=== PATIENT | female | born 1980 | race Caucasian/White ===

== ENCOUNTER 2025-04-20 11:38 | Day surgery (SDC) | payer OTHER, SELFPAY ==
[2025-04-13 14:59] VITALS: BMI 34.4
--- NOTE | 2025-04-20 07:09 | PM.HP.IH.1 ---
History of Present Illness History of Present Illness Date Patient Seen: 04/20/25 Chief complaint: Colonoscopy w/band ligation Narrative: Patient presents for colonoscopy today, possible band ligation hemorrhoids. PFSH Social History Smoking Status: Never smoker Meds Home Medications and Allergies Home Medications ?Medication ?Instructions ?Recorded ?Confirmed ?Type sodium,potassium,mag sulfates 17.5 See Rx Instructions PO .COMPLEX 03/19/25 Rx gram-3.13 gram-1.6 gram oral soln #354 mL (Suprep Bowel Prep Kit) Allergies Allergy/AdvReac Type Severity Reaction Status Date / Time No Known Drug Allergies Allergy Unverified 03/15/25 09:01 Exam Narrative Exam Narrative: Const General: healthy appearing, comfortable and no acute distress Orientation: alert and oriented x3 HENMT Ears: hearing grossly normal bilaterally Eyes Visual Kenny: normal visual kenny by confrontation Conjunctivae: conjunctivae normal Sclera: sclerae normal EOM: EOM intact bilaterally Resp Effort & Inspection: normal respiratory effort and able to speak in complete sentences Cardio Rate: regular rate GI Palpation: soft (NT) Extrem General: no pedal edema and no calf tenderness Assessment & Plan Assessment and plan (1) Rectal bleeding: Status: Acute Plan Plan colonoscopy, possible biopsy. The risks, benefits and options regarding the procedure were explained to the patient in detail. Risk discussion included but not limited to: bleeding, perforation, unable to reach cecum, missed lesion. The patient was encouraged to ask questions and they were answered to their satisfaction. The patient understands and is agreeable to proceed. Time-Based Coding :: [TOTAL MINUTES] spent with patient and on the chart (including review of chart, obtaining history, exam, reviewing outside data, placing orders, documenting exam and treatment plan, and counseling patient) on [DATE]. [employer] Document charge(s): Yes Charge Codes Inpatient/observation care including admit and discharge same day: [id number]
--- NOTE | 2025-04-20 11:52 | SUR.PREOP ---
Pt states she has had a total hysterectomy; test not run
[2025-04-20 12:01] VITALS: BP 127/78; PULSE 90; RESP 16; TEMP 36.4; O2SAT 99
[2025-04-20] MEDS: LACTATED RINGERS 1,000 ML 42 ML IV (12:05)
--- NOTE | 2025-04-20 12:21 | P.OP.COLON_ITS ---
Operative Date/Time/Diagnoses Date of procedure: 04/20/25 Time of procedure: 12:43 Pre-op diagnosis: Rectal bleeding Post-op diagnosis: same Procedure & Clinicians Study performed: Colonoscopy Same procedure(s) as scheduled: Yes Indications: 44yo F with rectal bleeding Surgeon: Carlo Saldana Anesthesia Type: MAC +/- Procedure Notes SCOAP/Timeout: Performed Procedure in detail: Colonoscopy Patient placed in left lateral recumbent position. Time out was performed. Procedural sedation was administered by anesthesia. Examination began with a thorough inspection of the perianal area. There was no evidence of fissures, fistulae, external hemorrhoids or cutaneous malignancy. The colonoscope was then placed into the rectum and the lumen was insufflated with carbon dioxide. The scope was carefully advanced forward. Ultimately the cecum was intubated and confirmed by identification of the ileocecal valve, the appendiceal orifice and the confluence of the taenia. The scope was then slowly withdrawn examining the colon thoroughly in all directions. In the rectum, retroflexion of the scope was performed for inspection of the distal rectum and anal canal. ?Significant colonoscopy findings: ?1. Quality of the preparation-good, [place] 2-3, improved with irrigation/suction ?2. Normal screening colonoscopy 3. No polyps, mass, stricture 4. Small internal hemorrhoids, close to anal verge, none candidates for banding Scope withdrawal time: 9 minutes Findings: internal hemorrhoids Specimen(s): none sent Estimated Blood Loss: 5 Complications: none Impression: Normal screening colonoscopy Small internal hemorrhoids, none candidates for banding Post-procedure Recommendations: Colonoscopy in 10 years Plan for aftercare: PACU then home Follow up: as needed Disposition: PACU
[2025-04-20 12:47] VITALS: BP 136/79; PULSE 84; RESP 18; TEMP 37; O2SAT 99
[2025-04-20 12:51] VITALS: BP 135/81; PULSE 85; RESP 16; O2SAT 98
[2025-04-20 12:54] VITALS: BP 136/81; PULSE 82; RESP 12; TEMP 36.7; O2SAT 98
== END 2025-04-20 13:22 | disposition home or self-care (01) ==
PROVIDERS: Referring Provider Surgery; Visit Provider Surgery
PROC: 0DJD8ZZ Inspection of Lower Intestinal Tract, Via Natural or Artificial Opening Endoscopic (ICD-10-PCS; CPT 45378; principal; 2025-04-20 13:30)
DX: K62.5 Hemorrhage of anus and rectum (principal); K64.8 Other hemorrhoids
CPT/HCPCS: 45378; 81025; J2704; J7120